=== PATIENT | female | born 1995 | race Caucasian/White ===

== ENCOUNTER → 2016-06-05 | Outpatient (REF) | payer BC | LOC: M LAB REF 16:51 | PROVIDERS: ATTEND Nurse Practitioner Adult Health | DX: R06.02 Shortness of breath (principal) ==

== ENCOUNTER → 2016-06-06 | Outpatient (CLI) | payer BC ==
--- NOTE | 2016-06-07 03:27 | REP ---
Clinical: Shortness of breath . Comparison: None . Technique: PA and lateral. Findings: The mediastinum and cardiac silhouette are normal. The lung baker are clear and without acute consolidation, effusion, or pneumothorax. The skeletal structures are intact and normal. Impression: 1. No acute cardiopulmonary process. Signed by Mitul Patel MD 06/07/2016 03:19 A
== END ==
LOC: M SMT 10:04
PROVIDERS: ATTEND Nurse Practitioner Adult Health
DX: R06.02 Shortness of breath (principal)

== ENCOUNTER → 2016-06-19 | Outpatient (CLI) | payer BC ==
[~2016-06-19] MED LIST: METHACHOLINE KIT (J7674) INH ONE
--- NOTE | 2016-06-19 10:52 | PFTRPT ---
BRONCHOPROVOCATION TEST (METHACHOLINE CHALLENGE) DATE OF PROCEDURE: 06/19/2016 ORDERING PROVIDER: Sirena Hawkins NP Study of excellent technical quality. Some question of effort is raised. Under protocol, methacholine was administered. Even after a maximal dose of 25 mg or 188.875 CDUs, no provocation dose ever achieved. IMPRESSION: Negative methacholine challenge study. MTDD
--- NOTE | 2016-06-20 10:43 | METHCHAL ---
DATE OF PROCEDURE: 06/19/2016 ORDERING PROVIDER: Sirena Hawkins NP Study of excellent technical quality. Some question of effort is raised. Under protocol, methacholine was administered. Even after a maximal dose of 25 mg or 188.875 CDUs, no provocation dose ever achieved. IMPRESSION: Negative methacholine challenge study.
== END ==
LOC: M CARPUL 09:29
PROVIDERS: ATTEND Nurse Practitioner Adult Health
DX: R05 Cough (principal)

== ENCOUNTER → 2016-12-31 | Outpatient (REF) | payer BC | LOC: M LAB REF 14:44 | PROVIDERS: ATTEND Physician Assistant | DX: R50.9 Fever, unspecified (principal); M79.1 Myalgia ==

== ENCOUNTER → 2017-03-20 | Outpatient (REF) | payer BC ==
[2017-03-20 15:58] LABS: BASO % 0.3 % (0.0-1.0); EOS % 0.4 % (0.0-3.0); IMMATURE GRANULOCYTE % 0.2 % (0-0); LYMPH # 1.3 10^3/uL (1.5-6.5); LYMPH % 13.3 % (24.0-44.0); MEAN CORPUSCULAR HEMOGLOBIN 26.8 pg (27.0-33.0); MEAN CORPUSCULAR HGB CONC 32.6 g/dl (32.0-36.5); MEAN CORPUSCULAR VOLUME 82.4 fl (80.0-96.0); MONO # 0.7 10^3/uL (0.0-0.8); MONO % 7.7 % (0.0-5.0); NEUTROPHILS # 7.4 10^3/uL (1.8-7.7); NEUTROPHILS % 78.1 % (36.0-66.0); PLATELET COUNT, AUTOMATED 255 10^3/uL (150-450); RED CELL DISTRIBUTION WIDTH 13.4 % (11.5-14.5); WHITE BLOOD COUNT 9.5 10^3/uL (4.0-10.0)
[2017-03-20 16:32] LABS: ALBUMIN 4.3 GM/DL (3.2-5.2); ALBUMIN/GLOBULIN RATIO 1.43 (1.00-1.93); ALKALINE PHOSPHATASE 58 U/L (45-117); ALT/SGPT 19 U/L (12-78); ANION GAP 7 MEQ/L (8-16); AST/SGOT 18 U/L (7-37); BILIRUBIN,TOTAL 0.6 MG/DL (0.2-1.0); BLOOD UREA NITROGEN 13 MG/DL (7-18); CARBON DIOXIDE LEVEL 29 MEQ/L (21-32); CHLORIDE LEVEL 105 MEQ/L (98-107); CREATININE FOR GFR 0.83 MG/DL (0.55-1.02); GLUCOSE, FASTING 66 MG/DL (70-105); POTASSIUM SERUM 3.8 MEQ/L (3.5-5.1); SODIUM LEVEL 141 MEQ/L (136-145); TOTAL PROTEIN 7.3 GM/DL (6.4-8.2)
[2017-03-21 08:23] LABS: CONTROL LINE MONO RF C INT CTR LINE PRESENT
== END ==
LOC: M LABDRAW1 13:50
DX: R53.83 Other fatigue (principal)
CPT/HCPCS: 80053

== ENCOUNTER → 2017-09-29 | Outpatient (REF) | payer BC | LOC: M LAB REF 18:16 | DX: R50.9 Fever, unspecified (principal) | CPT/HCPCS: 87077 ==

== ENCOUNTER → 2017-09-29 | Outpatient (CLI) | payer BC ==
[2017-09-29 17:25] LABS: ALBUMIN 4.4 GM/DL (3.2-5.2); ALBUMIN/GLOBULIN RATIO 1.42 (1.00-1.93); ALKALINE PHOSPHATASE 58 U/L (45-117); ALT/SGPT 20 U/L (12-78); ANION GAP 10 MEQ/L (8-16); AST/SGOT 15 U/L (7-37); BILIRUBIN,TOTAL 1.1 MG/DL (0.2-1.0); BLOOD UREA NITROGEN 15 MG/DL (7-18); CALCIUM LEVEL 9.3 MG/DL (8.5-10.1); CARBON DIOXIDE LEVEL 24 MEQ/L (21-32); CHLORIDE LEVEL 106 MEQ/L (98-107); CREATININE FOR GFR 0.89 MG/DL (0.55-1.30); GLOMERULAR FILTRATION RATE > 60.0 (>60); GLUCOSE, FASTING 101 MG/DL (70-100); POTASSIUM SERUM 4.1 MEQ/L (3.5-5.1); SODIUM LEVEL 140 MEQ/L (136-145); TOTAL PROTEIN 7.5 GM/DL (6.4-8.2)
[2017-09-29 17:56] LABS: BASO % 0.2 % (0.0-1.0); HEMATOCRIT 34.5 % (36.0-47.0); HEMOGLOBIN 11.6 g/dl (12.0-15.5); IMMATURE GRANULOCYTE % 0.5 % (0-3.0); LYMPH # 0.4 10^3/uL (1.5-6.5); LYMPH % 3.3 % (24.0-44.0); MEAN CORPUSCULAR HEMOGLOBIN 27.5 pg (27.0-33.0); MEAN CORPUSCULAR HGB CONC 33.6 g/dl (32.0-36.5); MEAN CORPUSCULAR VOLUME 81.8 fl (80.0-96.0); MONO # 0.5 10^3/uL (0.0-0.8); MONO % 3.6 % (0.0-5.0); NEUTROPHILS # 11.5 10^3/uL (1.8-7.7); NEUTROPHILS % 92.4 % (36.0-66.0); PLATELET COUNT, AUTOMATED 282 10^3/uL (150-450); RED BLOOD COUNT 4.22 10^6/uL (4.00-5.40); RED CELL DISTRIBUTION WIDTH 13.2 % (11.5-14.5); WHITE BLOOD COUNT 12.4 10^3/uL (4.0-10.0)
[2017-10-02 00:09] LABS: EBV AB TO NUCLEAR ANTIGEN <18.0 U/mL (0.0-17.9)
[2017-10-02 00:09] LABS: EBV VIRAL CAPSID AG IgM <36.0 U/mL (0.0-35.9)
== END ==
LOC: M WUC 15:04
DX: R50.9 Fever, unspecified (principal); M79.1 Myalgia
CPT/HCPCS: 80053

== ENCOUNTER → 2019-05-25 | Outpatient (REF) | payer BC | LOC: M LAB REF 13:45 | PROVIDERS: ATTEND Physician Assistant | DX: J02.0 Streptococcal pharyngitis (principal) ==

== ENCOUNTER → 2019-07-05 | Outpatient (REF) | payer BC | LOC: M LAB REF 20:06 | PROVIDERS: ATTEND Physician Assistant | DX: J02.9 Acute pharyngitis, unspecified (principal) ==

== ENCOUNTER 2019-11-04 11:15 | Day surgery (SDC) | payer BC ==
[~2019-11-04 11:15] MED LIST changes: +LIDOCAINE W/EPINEPHRINE 1% 20ML VIAL ONE; -METHACHOLINE KIT (J7674) INH ONE
[2019-11-04] MEDS ORDERED: MIDAZOLAM INJ 2MG/2ML VIAL (J2250 PER 1MG) As Ordered ONE (11:45)
[2019-11-04] MEDS ORDERED: fentaNYL 250 MCG/5 ML INJECTION (J3010) As Ordered ONE (11:48)
[2019-11-04] MEDS ORDERED: ROCURONIUM BROMIDE 50 MG/5 ML VIAL As Ordered ONE (11:51)
[2019-11-04] MEDS ORDERED: propofoL 200 MG/20 ML VIAL As Ordered ONE (11:51)
[2019-11-04] MEDS ORDERED: dexameTHASONE 4 MG/ML 1ML VIAL (J1100 PER 1MG) As Ordered ONE ×2 (12:06→12:07)
[2019-11-04] MEDS ORDERED: ONDANSETRON 4MG/2ML VIAL As Ordered ONE (12:08)
[2019-11-04] MEDS ORDERED: SUGAMMADEX SODIUM 500 MG/5 ML VIAL (BRIDION) As Ordered ONE (12:08)
[2019-11-04] MEDS ORDERED: ACETAMINOPHEN 1000MG 100ML IV BTL (OFIRMEV) (J0131 PER 10MG) As Ordered ONE (12:08)
[2019-11-04] MEDS ORDERED: BUPIVACAINE HCL 0.25% 30ML VIAL As Ordered ONE (12:11)
[2019-11-04] MEDS ORDERED: LABETALOL 100MG/20ML VIAL As Ordered ONE (12:48)
[2019-11-04] MEDS ORDERED: HYDROmorphone HCL 2 MG/ML 1ML VIAL (J1170) ONE (13:10)
[2019-11-04] MEDS ORDERED: HYDROmorphone HCL 2 MG/ML 1ML VIAL (J1170) As Ordered ONE (13:10)
[2019-11-04] MEDS ORDERED: oxyCODONE 5MG TAB ONE (13:30)
--- NOTE | 2019-12-30 10:41 | RO ---
DATE OF OPERATION: 11/04/2019 PREOPERATIVE DIAGNOSIS: Chronic tonsillitis. POSTOPERATIVE DIAGNOSIS: Chronic tonsillitis. PROCEDURE: Tonsillectomy. Under general anesthesia with the patient intubated, a Gill-Jordan mouth gag was inserted. The tonsillar area was infiltrated with lidocaine and Marcaine. Using the cautery, I dissected the tonsil free from its bed on both sides. I cauterized the base, apex, and other areas. The patient tolerated the procedure well. No bleeding. The patient extubated and transferred to the recovery room in excellent condition. NORMAN
== END 2019-11-04 15:05 | disposition home or self-care (01) ==
LOC: M SDC 11:15
PROVIDERS: ATTEND Otolaryngology
DX: J35.01 Chronic tonsillitis (principal); D64.9 Anemia, unspecified; J45.909 Unspecified asthma, uncomplicated; Z88.1 Allergy status to other antibiotic agents
CPT/HCPCS: 42826; 88302; J0131; J1100; J1170; J2250; J2405; J3010

== ENCOUNTER → 2019-12-17 | Outpatient (REF) | payer BC | LOC: M LAB REF 11:47 | PROVIDERS: ATTEND Physician Assistant | DX: J02.9 Acute pharyngitis, unspecified (principal) ==

== ENCOUNTER 2020-01-21 08:37 | Outpatient (RCR) | payer MEDICAID | END 2020-01-22 | LOC: M PT 08:37 | PROVIDERS: ATTEND Orthopaedic Surgery | DX: M51.36 Other intervertebral disc degeneration, lumbar region (principal) ==

== ENCOUNTER → 2020-02-21 | Outpatient (RCR) | payer MEDICAID | END | disposition home or self-care (01) | LOC: M PT 01-25 09:29 | PROVIDERS: ATTEND Orthopaedic Surgery | DX: M51.36 Other intervertebral disc degeneration, lumbar region (principal) ==

== ENCOUNTER 2020-03-02 07:45 | Outpatient (RCR) | payer MEDICAID, OTHER | END 2020-03-23 | LOC: M PT 07:45 | PROVIDERS: ATTEND Orthopaedic Surgery | DX: Z47.89 Encounter for other orthopedic aftercare (principal); M51.36 Other intervertebral disc degeneration, lumbar region ==

== ENCOUNTER → 2020-10-03 | Outpatient (REF) | payer OTHER ==
[~2020-10-03] MED LIST changes: -LIDOCAINE W/EPINEPHRINE 1% 20ML VIAL ONE; +MULTTAB20 PO; +PRED20TA PO
== END ==
LOC: MERGE 19:04 → M SFHCWAGY 19:04
PROVIDERS: ATTEND Advanced Practice Midwife
DX: Z12.4 Encounter for screening for malignant neoplasm of cervix (principal)

== ENCOUNTER → 2020-11-29 | Outpatient (CLI) | payer OTHER ==
--- NOTE | 2020-11-29 12:10 | REP ---
INDICATION: ANATOMY. COMPARISON: None. TECHNIQUE: Real-time sonographic evaluation of the gravid uterus performed. FINDINGS: Estimated gestational age is20 weeks 1 day, EDC 04/17/2021. Today's measurements indicate appropriate growth. Presentation: Cephalic Placenta anterior, grade 1, without evidence of placenta previa. heart rate is recorded at 152 beats per minute. Amniotic fluid is subjectively normal. Closed cervical length is measured at 4.6 cm. Biometry chart: BPD: 48 mm, 20 weeks 4 days, 61st percentile. HC: 183 mm, 20 weeks 5 days, 67th percentile AC: 152 mm, 20 weeks 3 days, 56th percentile Femur length: 33 mm, 20 weeks 1 days, 52nd percentile HC to AC ratio: 1.20, normal range 1.06-1.24. Estimated weight: 349g, 59th percentile. anatomy: Cranium: Grossly normal Lateral Ventricles/Choroid Plexus: Grossly normal Posterior Fossa/Cerebellum: Grossly normal Nose/lips/profile: Not well seen due to position Four chamber heart: Not well seen due to position Right ventricular outflow tract: Grossly normal Left ventricular outflow tract: Not well seen due to position Left-sided stomach: Grossly normal Kidneys: Grossly normal Bladder: Grossly normal Cord Insertion: Grossly normal 3 vessel cord: Grossly normal Spine: Grossly normal IMPRESSION: Viable single intrauterine gestation as above. <Electronically signed by Zeferino Chan > 11/29/20 [id number]
== END ==
LOC: M WHC 10:29
PROVIDERS: ATTEND Advanced Practice Midwife
DX: O99.352 Diseases of the nervous system complicating pregnancy, second trimester (principal)

== ENCOUNTER → 2021-01-09 | Outpatient (CLI) | payer OTHER ==
--- NOTE | 2021-01-09 15:59 | REP ---
INDICATION: F/U ANATOMY COMPARISON: 11/29/2020 TECHNIQUE: Transabdominal obstetrical ultrasound with color Doppler evaluation. FINDINGS: Examination demonstrates a single live intrauterine in cephalic presentation. motion is identified by technologist. Placenta is noted anterior and grade 2 without evidence for placenta previa or abruption. Amniotic fluid volume is normal. Cervix measures 4.7 cm in length and appears closed.. Selected gestational age: 26 weeks 0 days with KAIT 04/17/2021. Gestational age by current measurements 26 weeks 4 days with KAIT 04/13/2021. FHR equals 144 beats per minute. Estimated weight 922 grams (53rdpercentile). Anatomical assessment demonstrates normal structures including facial profile, orbits, nose/lips, heart and left ventricular outflow tract. IMPRESSION: Single live intrauterine demonstrating appropriate estimated weight and growth. In conjunction with prior examination anatomical assessment is complete and normal. <Electronically signed by Mitul Patel > 01/09/21 [id number]
== END ==
LOC: M WHC 15:10
PROVIDERS: ATTEND Obstetrics & Gynecology
DX: Z36.89 Encounter for other specified antenatal screening (principal); Z3A.23 23 weeks gestation of pregnancy

== ENCOUNTER → 2021-01-23 | Outpatient (CLI) | payer OTHER ==
[2021-01-23 11:05] LABS: HEMATOCRIT 32.9 % (36.0-47.0); HEMOGLOBIN 11.3 g/dl (12.0-15.5); MEAN CORPUSCULAR HEMOGLOBIN 31.1 pg (27.0-33.0); MEAN CORPUSCULAR HGB CONC 34.3 g/dl (32.0-36.5); MEAN CORPUSCULAR VOLUME 90.6 fl (80.0-96.0); PLATELET COUNT, AUTOMATED 204 10^3/uL (150-450); RED BLOOD COUNT 3.63 10^6/uL (4.00-5.40); WHITE BLOOD COUNT 9.6 10^3/uL (4.0-10.0)
== END ==
LOC: M PLALAB 07:45
PROVIDERS: ATTEND Obstetrics & Gynecology
DX: R73.01 Impaired fasting glucose (principal)

== ENCOUNTER → 2021-03-18 | Outpatient (REF) | payer OTHER | LOC: M LAB REF 18:31 | PROVIDERS: ATTEND Physician Assistant Medical | DX: R50.9 Fever, unspecified (principal); R53.83 Other fatigue ==

== ENCOUNTER → 2021-03-28 | Outpatient (REF) | payer OTHER | LOC: M SFHCWAGY 13:22 | PROVIDERS: ATTEND Obstetrics & Gynecology | DX: Z36.89 Encounter for other specified antenatal screening (principal); Z3A.37 37 weeks gestation of pregnancy ==

== ENCOUNTER → 2021-03-28 | Outpatient (REF) | payer OTHER | LOC: M PLALAB 10:23 | PROVIDERS: ATTEND Obstetrics & Gynecology | DX: Z53.9 Procedure and treatment not carried out, unspecified reason (principal) ==

== ENCOUNTER 2021-03-29 02:57 | Emergency (ER) | payer OTHER ==
[~2021-03-29] VITALS: Ht 175.3 cm; Wt 96.4 kg
[2021-03-29] MEDS ORDERED: MULTTAB20 PO (03:18)
[2021-03-29] MEDS ORDERED: predniSONE 20 MG TAB PO ONE (04:55)
[2021-03-29] MEDS ORDERED: PRED20TA PO (04:57)
[2021-03-29 05:11] VITALS: BP 124/70
== END 2021-03-29 05:13 | disposition home or self-care (01) ==
LOC: M ED 02:57
DX: O26.86 Pruritic urticarial papules and plaques of pregnancy (PUPPP) (principal); Z3A.00 Weeks of gestation of pregnancy not specified; Z79.899 Other long term (current) drug therapy
CPT/HCPCS: 99283; J7512

== ENCOUNTER 2021-04-22 08:30 | Inpatient (IN) | payer OTHER ==
[2021-04-22] VITALS (23 sets, daily range): BP systolic 97–140; BP diastolic 53–78
[~2021-04-22] VITALS: Ht 175.3 cm; Wt 98.5 kg
[2021-04-22] MEDS ORDERED: HOME MED LIST COMPLETE! XX SCH (08:45)
[2021-04-22] MEDS ORDERED: LR 1,000 ML IV SCH (09:15)
[2021-04-22] MEDS ORDERED: LR 800 ML IV ONE (09:15)
[2021-04-22] MEDS ORDERED: TRANEXAMIC ACID INJection 1,000 MG in NS 100 ML IV PRN (09:15)
[2021-04-22] MEDS ORDERED: CLINDAMYCIN IV SCH (09:15)
[2021-04-22] MEDS ORDERED: LIDOCAINE 1% MDV 20ML VIAL INFIL PRN (09:15)
[2021-04-22] MEDS ORDERED: OXYTOCIN DRIP 30 UNITS in IV 1 EA IV PRN (09:15)
[2021-04-22] MEDS ORDERED: METHYLERGONOVINE MALEATE 0.2 MG/ML VIAL (J2210) IM PRN (09:15)
[2021-04-22] MEDS ORDERED: CARBOPROST TROMETHAMINE 250 MCG/ML AMP IM PRN (09:15)
[2021-04-22 09:59] LABS: HEMATOCRIT 35.3 % (36.0-47.0); HEMOGLOBIN 12.2 g/dl (12.0-15.5); MEAN CORPUSCULAR HEMOGLOBIN 30.6 pg (27.0-33.0); MEAN CORPUSCULAR HGB CONC 34.6 g/dl (32.0-36.5); MEAN CORPUSCULAR VOLUME 88.5 fl (80.0-96.0); PLATELET COUNT, AUTOMATED 198 10^3/uL (150-450); RED BLOOD COUNT 3.99 10^6/uL (4.00-5.40); WHITE BLOOD COUNT 9.9 10^3/uL (4.0-10.0)
[2021-04-22] MEDS: CLINDAMYCIN 900 MG in IV 1 EA IV SCH ×2 (10:30→17:30)
[2021-04-22] MEDS ORDERED: BUTORPHANOL 2 MG/ML INJ (J0595) IV ONE (12:15)
[2021-04-22] MEDS ORDERED: PROMETHAZINE INJ 25 MG/ML VIAL (J2550) IV ONE (12:15)
[2021-04-22] MEDS ORDERED: OXYTOCIN DRIP 30 UNITS in IV 1 EA IV SCH ×2 (13:55→18:50)
[2021-04-22] MEDS ORDERED: FENTANYL 2MCG/ML ROPIVACAINE 0.2% IN 0.9% NACL 100ML IVBAG As Ordered ONE (14:09)
[2021-04-22] MEDS ORDERED: NALOXONE INJ 0.4MG/1ML VIAL (J2310 PER 1MG) IV PRN (14:30)
[2021-04-22] MEDS ORDERED: diphenhydrAMINE 50MG/ML VIAL (J1200) IV PRN (14:30)
[2021-04-22] MEDS ORDERED: ePHEDrine SULFATE 25 MG/5 ML(5MG/ML) SYRINGE IV PRN (14:30)
[2021-04-22] MEDS ORDERED: REFRIGERATOR IV KEYS XX PRN (14:30)
[2021-04-22] MEDS ORDERED: ONDANSETRON 4MG/2ML VIAL IV PRN (14:30)
[2021-04-22] MEDS ORDERED: EPIDURAL/PCA KEYS XX PRN (14:30)
[2021-04-22] MEDS ORDERED: EPIDURAL COMMENT XX SCH (14:30)
[2021-04-22] MEDS ORDERED: FENTANYL/ROPIVACAINE/NACL BAG 100 ML EPIDURAL SCH (14:30)
[2021-04-22] MEDS ORDERED: LACTATED RINGER'S 1000 ML IV PRN (14:30)
[2021-04-22 18:09] LABS: CORD GAS ABE A -6.1; CORD GAS ABE V -7.2; CORD GAS HCO3 A 22.9 MEQ/L; CORD GAS HCO3 V 20.7 MEQ/L; CORD GAS O2 SAT A 30.5 %; CORD GAS O2 SAT V 56.9 %; CORD GAS PCO2 A 60.7 mmHg; CORD GAS PCO2 V 50.8 mmHg; CORD GAS PH A 7.194 UNITS; CORD GAS PH V 7.228 UNITS; CORD GAS PO2 A 18.4 mmHg; CORD GAS PO2 V 28.6 mmHg; CORD GAS SBC A 18.1 MEQ/L; CORD GAS SBC V 17.9 MEQ/L; CORD GAS TCO2 A 24.7 MEQ/L; CORD GAS TCO2 V 22.3 MEQ/L
[2021-04-22] MEDS ORDERED: METHYLERGONOVINE MALEATE 0.2 MG TAB PO PRN (18:50)
[2021-04-22] MEDS ORDERED: MEASLES,MUMPS,RUBELLA VACCINE INJ (MMR-II) (90707) SC SCH (18:50)
[2021-04-22] MEDS ORDERED: ACETAMINOPHEN TAB 650MG DOSE (2X325MG) PO PRN (18:50)
[2021-04-22] MEDS ORDERED: RHOGAM 300 MCG (1500 IU) INJ (J2790) IM SCH (18:50)
[2021-04-22] MEDS ORDERED: IBUPROFEN 600MG TAB PO PRN (18:50)
[2021-04-22] MEDS: DOCUSATE SODIUM 100MG CAPSULE PO SCH (21:40)
[2021-04-23] MEDS: IBUPROFEN 800 MG TAB PO PRN ×2 (02:11→17:16)
[2021-04-23 06:00] VITALS: BP 129/64
[2021-04-23] MEDS: PRENATAL VITAMINS CHEWABLE TABLET PO SCH (08:51)
[2021-04-23] MEDS: DOCUSATE SODIUM 100MG CAPSULE PO SCH ×2 (08:51→20:21)
[2021-04-23] MEDS: ACETAMINOPHEN 500 MG TAB PO PRN (12:23)
[2021-04-23 18:00] VITALS: BP 119/56
[2021-04-24] MEDS: ACETAMINOPHEN 500 MG TAB PO PRN (00:31)
[2021-04-24 06:36] VITALS: BP 136/82
[2021-04-24] MEDS: DOCUSATE SODIUM 100MG CAPSULE PO SCH (08:36)
[2021-04-24] MEDS: PRENATAL VITAMINS CHEWABLE TABLET PO SCH (08:36)
== END 2021-04-24 12:20 | disposition home or self-care (01) | DRG 807 ==
LOC: M LDO 08:30 → M LDI 09:09 → M OBS 20:42
PROVIDERS: ADMIT Obstetrics & Gynecology; ATTEND Obstetrics & Gynecology
PROC: 10E0XZZ Delivery of Products of Conception, External Approach (ICD-10-PCS; principal; 2021-04-22)
DX: O48.0 Post-term pregnancy (principal); Z37.0 Single live birth; Z3A.40 40 weeks gestation of pregnancy; O99.824 Streptococcus B carrier state complicating childbirth

== ENCOUNTER → 2022-01-23 | Outpatient (CLI) | payer OTHER | LOC: M PLALAB 15:08 | PROVIDERS: ATTEND Advanced Practice Midwife | DX: Z80.0 Family history of malignant neoplasm of digestive organs (principal) ==

== ENCOUNTER → 2023-02-25 | Outpatient (CLI) | payer OTHER ==
[2023-02-25 14:56] LABS: HEMATOCRIT 32.3 % (36.0-47.0); HEMOGLOBIN 11.1 g/dl (12.0-15.5); MEAN CORPUSCULAR HEMOGLOBIN 31.4 pg (27.0-33.0); MEAN CORPUSCULAR HGB CONC 34.4 g/dl (32.0-36.5); MEAN CORPUSCULAR VOLUME 91.5 fl (80.0-96.0); PLATELET COUNT, AUTOMATED 198 10^3/uL (150-450); RED BLOOD COUNT 3.53 10^6/uL (4.00-5.40); WHITE BLOOD COUNT 6.3 10^3/uL (4.0-10.0)
[2023-02-25 15:37] LABS: HIV 1&2 SCREEN NEGATIVE (NEGATIVE)
[2023-02-25 15:45] LABS: HEPATITIS C VIRUS ABY INDEX 0.05 INDEX (<0.8)
[2023-02-25 16:33] LABS: CHLAMYDIA DNA AMPLIFICATION NEGATIVE (NEGATIVE); GC DNA AMPLIFICATION NEGATIVE (NEGATIVE)
== END ==
LOC: M PLALAB 10:34
PROVIDERS: ATTEND Advanced Practice Midwife
DX: Z34.81 Encounter for supervision of other normal pregnancy, first trimester (principal)

== ENCOUNTER → 2023-04-03 | Outpatient (CLI) | payer OTHER | LOC: M WHC 09:59 | PROVIDERS: ATTEND Advanced Practice Midwife | DX: Z34.81 Encounter for supervision of other normal pregnancy, first trimester (principal) ==

== ENCOUNTER → 2023-06-05 | Outpatient (CLI) | payer OTHER ==
[2023-06-05 11:44] LABS: HEMATOCRIT 33.3 % (36.0-47.0); HEMOGLOBIN 11.4 g/dl (12.0-15.5); MEAN CORPUSCULAR HEMOGLOBIN 31.4 pg (27.0-33.0); MEAN CORPUSCULAR HGB CONC 34.2 g/dl (32.0-36.5); MEAN CORPUSCULAR VOLUME 91.7 fl (80.0-96.0); PLATELET COUNT, AUTOMATED 186 10^3/uL (150-450); RED BLOOD COUNT 3.63 10^6/uL (4.00-5.40)
== END ==
LOC: M PLALAB 07:54
PROVIDERS: ATTEND Advanced Practice Midwife
DX: Z34.82 Encounter for supervision of other normal pregnancy, second trimester (principal)

== ENCOUNTER → 2023-08-01 | Outpatient (REF) | payer OTHER | LOC: M PLALAB 16:15 | PROVIDERS: ATTEND Obstetrics & Gynecology | DX: Z3A.36 36 weeks gestation of pregnancy (principal) ==

== ENCOUNTER → 2025-01-26 | Outpatient (CLI) | payer OTHER ==
[~2025-01-26] MED LIST changes: +ACET-897 PO
[2025-01-26 13:53] LABS: PLATELET COUNT, AUTOMATED 239 10^3/uL (150-450)
[2025-01-26 14:28] LABS: HIV 1&2 SCREEN NEGATIVE (NEGATIVE)
[2025-01-26 14:36] LABS: HEPATITIS C VIRUS ABY INDEX < 0.02 INDEX (<0.8)
[2025-01-26 15:06] LABS: Trichomonas vaginalis (AMP) NOT DETECTED (NEGATIVE)
[2025-01-26 15:29] LABS: GC DNA AMPLIFICATION NEGATIVE (NEGATIVE)
== END ==
LOC: M PLALAB 11:07
PROVIDERS: ATTEND Advanced Practice Midwife
DX: Z34.82 Encounter for supervision of other normal pregnancy, second trimester (principal)

== ENCOUNTER → 2025-02-24 | Outpatient (REF) | payer OTHER | LOC: M SFHCWAGY 10:05 | PROVIDERS: ATTEND Advanced Practice Midwife | DX: R30.0 Dysuria (principal) ==

== ENCOUNTER → 2025-03-04 | Outpatient (CLI) | payer OTHER | LOC: M WHC 10:56 | PROVIDERS: ATTEND Advanced Practice Midwife | DX: Z34.82 Encounter for supervision of other normal pregnancy, second trimester (principal) ==